=== PATIENT | female | born 1985 ===

== ENCOUNTER 2016-08-14 21:53 | Emergency (ER) | payer OTHER ==
[2016-08-14] MEDS ORDERED: SODIUM CHLORIDE 1,000 ML IV STA (22:03)
[2016-08-14 22:04] VITALS: BP 128/89; PULSE 66; TEMP 98; BMI 29.2
--- NOTE | 2016-08-14 22:09 | PDOC ---
History of Present Illness - General Chief Complaint: Vaginal Bleeding Stated Complaint: VAGINAL BLEEDING Time Seen by Provider: 08/14/16 21:58 History Source: Patient Exam Limitations: No Limitations - History of Present Illness Initial Comments: 08/14/16 22:04 30 y f s/p misoprostol 1 1/2 m ago; presents to ed c/o continups vag bleeding everyday since. mild cramping. no fever. nausea but no vomiting. has not seen an md but has appointment for tomorrow. sts bleeding increased since last week to 1 pad every hour w/blood clots. now feels dizzy and has a head ache. in ed, hemodynamically stable. Past History - Past Medical History Allergies/Adverse Reactions: Allergies Allergy/AdvReac Type Severity Reaction Status Date / Time No Known Allergies Allergy Unverified 08/14/16 21:59 Home Medications: Ambulatory Orders Xanax PRN 08/14/16 - Psycho/Social/Smoking Cessation Hx Suicidal Ideation: No Smoking History: Current every day smoker Have you smoked in the past 12 months: Yes Number of Cigarettes Smoked Daily: 12 Information on smoking cessation initiated: Yes Review of Systems - Review of Systems Able to Perform ROS?: Yes Is the patient limited Slovak proficient: No Constitutional: Yes: Symptoms Reported, See HPI, Weakness Respiratory: No: Symptoms reported Cardiac (ROS): No: Symptoms Reported ABD/GI: No: Symptoms Reported : Yes: Symptoms Reported, See HPI Integumentary: No: Symptoms Reported Neurological: No: Symptoms reported All Other Systems: Reviewed and Negative *Physical Exam - Vital Signs Last Vital Signs Temp Pulse Resp BP Pulse Ox 98 F 66 16 128/89 100 08/14/16 22:00 08/14/16 22:00 08/14/16 22:00 08/14/16 22:00 08/14/16 22:00 - Physical Exam General Appearance: Yes: Nourished, Appropriately Dressed. No: Apparent Distress HEENT: positive: Normal ENT Inspection Neck: positive: Supple. negative: Tender Respiratory/Chest: positive: Lungs Clear, Normal Breath Sounds. negative: Respiratory Distress Cardiovascular: positive: Regular Rhythm, Regular Rate Gastrointestinal/Abdominal: positive: Normal Bowel Sounds, Soft Extremity: positive: Normal Capillary Refill. negative: Pedal Edema Integumentary: positive: Normal Color. negative: Petechiae, Ecchymosis, Bruising Neurologic: positive: Fully Oriented, Alert, Normal Mood/Affect, Normal Response , Motor Strength 11/14 ED Treatment Course - LABORATORY CBC & Chemistry Diagram: 08/14/16 22:19 Progress Note - Progress Note Progress Note: abnormal vag bleeding for 1 1/2 months doubt amount reported based on clinical findings will check orthostatic vitals, u-preg, cbd, and US better no anemia non orthostatic neg pgu no poc's on US (heterogenous endometrium) will follow w/ microfilm clerk tomorrow *DC/Admit/Observation/Transfer Diagnosis at time of Disposition: Vaginal bleeding - Discharge Dispostion Disposition: HOME Condition at time of disposition: Improved - Referrals Referrals: STAFF,NOT ON [Primary Care Provider] - Call tomorrow - Patient Instructions Additional Instructions: SEE YOUR AIR CREW OFFICER DOCTOR TOMORROW SCHEDULED IBUPROFEN, 800 MG 3 TIMES A DAY FOR 3 DAYS RETURN IF WORSENING OR NEW SYMPTOMS
[2016-08-14 22:27] LABS: MCH 30.3 pg (25.7-33.7); MCHC 33.5 g/dl (32.0-36.0); MEAN CELL VOLUME 90.5 fl (80-96); MEAN PLT VOLUME 9.2 fl (7.5-11.1); PLATELET COUNT 221 K/MM3 (134-434); RDW 11.9 % (11.6-15.6); WHITE BLOOD COUNT 8.3 K/mm3 (4.0-10.0)
[2016-08-14] MEDS ORDERED: KETOROLAC TROMETHAMINE 30 MG/1 ML VIAL ONE (22:42)
[2016-08-14] MEDS ORDERED: KETOROLAC TROMETHAMINE 30 MG/1 ML VIAL IVPUSH ONE (22:43)
[2016-08-14] MEDS ORDERED: ACETAMINOPHEN 500 MG TABLET (FP) PO ONE (23:45)
[2016-08-14] MEDS ORDERED: ACETAMINOPHEN 325 MG TABLET (FP) ONE (23:46)
== END 2016-08-15 00:02 | disposition home or self-care (01) ==
LOC: FER 21:53
PROC: 3E0333Z Introduction of Anti-inflammatory into Peripheral Vein, Percutaneous Approach (ICD-10-PCS; principal; 2016-08-14)
PROC: 3E0337Z Introduction of Electrolytic and Water Balance Substance into Peripheral Vein, Percutaneous Approach (ICD-10-PCS; 2016-08-14)
DX: N93.9 Abnormal uterine and vaginal bleeding, unspecified (principal); F17.210 Nicotine dependence, cigarettes, uncomplicated
CPT/HCPCS: 36415; 76830-TC; 84703; 85027; 99283-25